=== PATIENT | male | born 1990 | race Caucasian/White ===

== ENCOUNTER → 2017-07-18 | Outpatient (REF) | payer BC | LOC: M LAB REF 12:27 | PROVIDERS: ATTEND Physician Assistant | DX: J01.90 Acute sinusitis, unspecified (principal) ==

== ENCOUNTER → 2018-10-08 | Outpatient (REF) | payer BC | LOC: M SFHCLERA 16:12 | PROVIDERS: ATTEND Nurse Practitioner Family | DX: R50.9 Fever, unspecified (principal) ==

== ENCOUNTER → 2021-06-04 | Outpatient (CLI) | payer MEDICAID ==
--- NOTE | 2021-06-04 17:05 | REP ---
INDICATION: CHRONIC OTITIS MEDIA. Repeat dictation. Preliminary report is provided at the time of the exam by arielle BURROUGHS. COMPARISON: Comparison CT study of the brain May 11, 2014. TECHNIQUE: Helical scanning is acquired and 1 mm axial images re-formatted. Bone targeted zone axial and coronal thin sections are provided through the petrous bones bilaterally. FINDINGS: There is fluid filling mastoid air cells bilaterally, right more so than left consistent with some degree of mastoiditis. In the right the middle ear cavity is partially fluid-filled as well with fluid density medial to the tympanic membrane and adjacent to the middle ear ossicles. The superior aspect of the middle ear cavity is aerated. No bony erosive changes seen. The cochlear and vestibular apparatus appear intact. The internal auditory canals are normal and symmetric. The left middle ear cavity is normally aerated. The left cochlear and vestibular apparatus is normal. In the external auditory canals are unremarkable bilaterally. IMPRESSION: Fluid density material seen within the middle ear cavity on the right. Bilateral mastoid sinus opacification consistent with mastoiditis, right greater than left. <Electronically signed by Tahir Gonzalez > 06/04/21 [id number]
== END ==
LOC: M RAD 09:17
PROVIDERS: ATTEND Physician Assistant Medical
DX: H65.21 Chronic serous otitis media, right ear (principal)

== ENCOUNTER 2021-06-20 14:20 | Day surgery (SDC) | payer MEDICAID ==
[~2021-06-20] VITALS: Ht 182.9 cm; Wt 144.7 kg
[~2021-06-20 14:20] MED LIST: CIPRODEX OTIC SUSP 7.5ML As Ordered ONE
--- OUTSIDE RECORDS SUMMARY | 2021-06-20 14:24 | CCD | Continuity of Care Document ---
Author Author Willam EDEN Organization Unknown Address [address], [address] [place] [address] Phone [phone] Care Team Providers Care Sack Lifter Name Role Phone Pamela Earl AUTM AUTM Unavailable [facility] AUTM [phone] Problems Active Problems Provider Date Essential hypertension Aaron Nicole MD Onset: 08/29/2020 Social History Type Date Description Comments Sex Unknown ETOH Use Denies alcohol use Tobacco Use Start: Unknown Non Smoker Allergies and adverse reactions Description No Known Drug Allergies Medications Active Medications SIG Qnty Indications Ordering Provide r Date Augmentin 875-125mg Tablets tab by mouth twice a day 28tabs H70.13 Aaron Nicole MD 06/13/2021 Flonase Allergy Relief 50mcg/Act Suspension 2 sprays per nostril daily 19.8ml H69.93 Neeta Haynes 11/22/2020 Lisinopril 10mg Tablets Take 1 Tablet By Mouth Once Daily Unknown Sertraline HCL 50mg Tablets Take 1 Tablet By Mouth Once Daily For 90 Days Unknown Immunizations Description No Information Available Vital Signs Date Vital Result Comment 06/13/2021 8:42am Height 72 inches 6'0" Weight 313.00 lb BMI (Body Mass Index) 42.4 kg/m2 [place] Body Weight 178 lb Weight 141.977 kg BSA (Body Surface Area) 2.58 m2 01/12/2021 9:44am Height 72 inches 6'0" Weight 315.00 lb BMI (Body Mass Index) 42.7 kg/m2 [place] Body Weight 178 lb Weight 142.884 kg BSA (Body Surface Area) 2.58 m2 Results Description No Information Available Procedures Date Code Description Status 06/13/2021 17034 Office/Outpatient Established Mo d MDM 30-39 Min Completed 01/12/2021 96164 Office/Outpatient Established Lo w MDM 20-29 Min Completed 01/12/2021 36118 Endoscopy Nasal Diagnostic Compl eted Medical Devices Description No Information Available Encounters Type Date Location Provider Dx Diagnosis Office Visit 06/13/2021 8:30a [facility] Chu Eden II, PA-C H69.93 Unspecified Eustachian tube disorder, bi lateral H65.21 Chronic serous otitis media, right ear H90.11 Condctv hear loss, uni, righ t ear, w unrestr hear cntra side H70.13 Chronic mastoiditis, bilater al Office Visit 01/12/2021 10:00a [facility] Chu Eden II, PA-C H69.93 Unspecified Eustachian tube disorder, bi lateral H65.21 Chronic serous otitis media, right ear J35.2 Hypertrophy of adenoids H90.11 Condctv hear loss, uni, righ t ear, w unrestr hear cntra side Assessments Date Code Description Provider 06/13/2021 H69.93 Unspecified Eustachian tube diso rder, bilateral Chu Eden II PA-C 06/13/2021 H65.21 Chronic serous otitis media, rig ht ear Chu Eden II PA-C 06/13/2021 H90.11 Conductive hearing l oss, unilateral, right ear, with unrestricted hearing on the contralateral side MEERA Randall IIC 06/13/2021 H70.13 [facility], [facility] 01/12/2021 H69.93 Unspecified Eustachian tube diso rder, bilateral ANA LAURA Randall II-C 01/12/2021 H65.21 Chronic serous otitis media, rig ht ear Chu Eden II PA-C 01/12/2021 J35.2 Hypertrophy of adenoids Chu shaw II PAThoC 01/12/2021 H90.11 Conductive hearing l oss, unilateral, right ear, with unrestricted hearing on the contralateral side Chu Eden II, PA-C Plan of Treatment Future Appointment(s):* 06/20/2021 11:15 am - Aaron Nicole MD at [facility] 06/13/2021 - Chu Eden II, PA-C* H69.93 Unspecified Eustachian tube disorder, bilateral * H65.21 Chronic serous otitis media, right ear * H90.11 Conductive hearing loss, unilateral, right ear, with unrestricted hearing on the contralateral side * H70.13 Chronic mastoiditis, bilateral* New Medication:* Augmentin 875-125 mg - tab by mouth twice a day * Comments:* There is effusion in the right middle ear space and CT findings consistent with bilateral mastoiditis. He has no pain, no fever, no vertigo. Start Augmentin as directed. We will have him return in the next 1 to 2 weeks for review with Dr. Nicole as surgical intervention may be considered * Follow up:* with Dr Nicole 1-2w Functional Status Description No Information Available Mental Status Description No Information Available Referrals Refer to Reason for Referral Status Appt Date Aaron Nicole MD RECHECK H.69.93 Closed 03/[address] [address] [phone]
--- OUTSIDE RECORDS SUMMARY | 2021-06-20 14:24 | CCD | Continuity of Care Document ---
Author Author Willam EDEN Organization Unknown Address [address], [address] [place] [address] Phone [phone] Care Team Providers Care Reordering Clerk Name Role Phone Pamela Earl AUTM [phone] AUTM Unavailable [facility] AUTM [phone] Problems Active Problems Provider Date Essential hypertension [...] lb BMI (Body Mass Index) 42.4 kg/m2 [place] Body Weight 178 lb Weight 141.977 kg BSA (Body Surface Area) 2.58 m2 01/12/2021 9:44am Height 72 inches 6'0" Weight 315.00 lb BMI (Body Mass Index) 42.7 kg/m2 [place] Body Weight 178 lb Weight 142.884 kg BSA (Body Surface Area) 2.58 m2 Results Description No Information Available Procedures Date Code Description Status 01/12/2021 78022 Office/Outpatient Established Lo w MDM 20-29 Min Completed 01/12/2021 55840 Endoscopy Nasal Diagnostic Compl eted Medical Devices Description No Information Available Encounters Type Date Location Provider Dx Diagnosis Office Visit 01/12/2021 10:00a [facility] Chu Eden II, PA-C H69.93 Unspecified Eustachian tube disorder, bi lateral H65.21 Chronic serous otitis media, right ear J35.2 Hypertrophy of adenoids H90.11 Condctv hear loss, uni, righ t ear, w unrestr hear cntra side Assessments Date Code Description Provider 06/13/2021 H69.93 Unspecified Eustachian tube diso rder, bilateral Chu Eden II, PA-C 06/13/2021 H65.21 Chronic serous otitis media, rig ht ear Chu Eden II, PA-C 06/13/2021 H90.11 Conductive hearing l oss, unilateral, right ear, with unrestricted hearing on the contralateral side Chu Eden II, PA-C 06/13/2021 H70.13 Chronic mastoiditis, bilateral T [facility] Karey FREEDMAN PA-C 01/12/2021 H69.93 Unspecified Eustachian tube diso rder, bilateral Chu Eden II, PA-C 01/12/2021 H65.21 Chronic serous otitis media, rig ht ear Chu Eden II, PA-C 01/12/2021 J35.2 Hypertrophy of adenoids Chu Spaulding alan FREEDMAN PA-C 01/12/2021 H90.11 Conductive hearing l oss, unilateral, right ear, with unrestricted hearing on the contralateral side Chu Eden II, PA-C Plan of Treatment Future Appointment(s):* 06/20/2021 11:15 am - Aaron Nicole MD at [facility] 06/13/2021 - Chu Eden II, PA-C* H69.93 Unspecified Eustachian tube disorder, bilateral * H65.21 Chronic serous otitis media, right ear * H90.11 Conductive hearing loss, unilateral, right ear, with unrestricted hearing on the contralateral side * H70.13 Chronic mastoiditis, bilateral* New Medication:* Augmentin 875-125 mg - tab by mouth twice a day * Follow up:* with Dr Nicole 2w Functional Status Description No Information Available Mental Status Description No Information Available Referrals Refer to Reason for Referral Status Appt Date Aaron Nicole MD RECHECK H.69.93 Closed 03/2021 [address] [place] [address] [phone]
--- OUTSIDE RECORDS SUMMARY | 2021-06-20 14:24 | CCD ---
Author Author [facility] Address Unknown Phone Unavailable Care Team Providers Care Med Aide Name Role Phone Leticia NICOLE MD Unavailable Unavailable Leticia NICOLE MD Unavailable Unavailable Leticia NICOLE MD Unavailable Unavailable Leticia NICOLE MD Unavailable Unavailable Leticia NICOLE MD Unavailable Unavailable Leticia NICOLE MD Unavailable Unavailable Leticia NICOLE MD Unavailable Unavailable Leticia NICOLE MD Unavailable Unavailable Leticia NICOLE MD Unavailable Unavailable Leticia NICOLE MD Unavailable Unavailable Leticia NICOLE MD Unavailable Unavailable Leticia NICOLE MD Unavailable Unavailable Leticia NICOLE MD Unavailable Unavailable Leticia NICOLE MD Unavailable Unavailable Leticia NICOLE MD Unavailable Unavailable Leticia NICOLE MD Unavailable Unavailable Leticia NICOLE MD Unavailable Unavailable Leticia NICOLE MD Unavailable Unavailable Leticia NICOLE MD Unavailable Unavailable Leticia NICOLE MD Unavailable Unavailable Leticia NICOLE MD Unavailable Unavailable Leticia NICOLE MD Unavailable Unavailable Leticia NICOLE MD Unavailable Unavailable Leticia NICOLE MD Unavailable Unavailable eLticia NICOLE MD Unavailable Unavailable Leticia NICOLE MD Unavailable Unavailable Leticia NICOLE MD Unavailable Unavailable LOS, Leticia SMITH MD Unavailable Unavailable LOS, Leticia SMITH MD Unavailable Unavailable LOS, Leticia SMITH MD Unavailable Unavailable LOS, Leticia SMITH MD Unavailable Unavailable LOS, Leticia SMITH MD Unavailable Unavailable LOS, Leticia SMITH MD Unavailable Unavailable LOS, Leticia SMITH MD Unavailable Unavailable Karey II, Chu PA Unavailable Unavailable Karey II, Chu PA Unavailable Unavailable Karey II, Chu PA Unavailable Unavailable Karey II, Chu PA Unavailable Unavailable Karey II, Chu PA Unavailable Unavailable Karey II, Chu PA Unavailable Unavailable Karey II, Chu PA Unavailable Unavailable Karey II, Chu PA Unavailable Unavailable Karey II, Chu PA Unavailable Unavailable Karey II, Chu PA Unavailable Unavailable Karey II, Chu PA Unavailable Unavailable Karey II, Chu PA Unavailable Unavailable Karey II, Chu PA Unavailable Unavailable Karey II, Chu PA Unavailable Unavailable Karey II, Chu PA Unavailable Unavailable Karey II, Chu PA Unavailable Unavailable Karey II, Chu PA Unavailable Unavailable Karey II, Chu PA Unavailable Unavailable Karey II, Chu PA Unavailable Unavailable Re-disclosure Warning The records that you are about to access may contain information from federally-assisted alcohol or drug abuse programs. If such information is present, then the following federally mandated warning applies: This information has been disclosed to you from records protected by federal confidentiality rules (42 CFR part 2). The federal rules prohibit you from making any further disclosure of this information unless further disclosure is expressly permitted by the written consent of the person to whom it pertains or as otherwise permitted by 42 CFR part 2. A general authorization for the release of medical or other information is NOT sufficient for this purpose. The Federal rules restrict any use of the information to criminally investigate or prosecute any alcohol or drug abuse patient.The records that you are about to access may contain highly sensitive health information, the redisclosure of which is protected by Article 27-F of the [facility] Public Health law. If you continue you may have access to information: Regarding HIV / AIDS; Provided by facilities licensed or operated by the [facility] Office of Mental Health; or Provided by the [facility] Office for People With Developmental Disabilities. If such information is present, then the following [facility] mandated warning applies: This information has been disclosed to you from confidential records which are protected by state law. State law prohibits you from making any further disclosure of this information without the specific written consent of the person to whom it pertains, or as otherwise permitted by law. Any unauthorized further disclosure in violation of state law may result in a fine or usp sentence or both. A general authorization for the release of medical or other information is NOT sufficient authorization for further disc losure. Family History Family Member Name Family Member Gender Family Member Status Date o f Status Description Data Source(s) Unknown Unknown Problem MEDENT ([facility]) Unknown Male Problem MEDENT ([facility] ) Unknown Male Problem MEDENT ([facility]) Encounters Encounter Providers Location Date Indications Data Source(s ) Outpatient Attender: Chu Nicole/Logan/Kiran/Rein dl 06/13/2021 08:30:00 AM EDT MED[facility] ([facility] [place] [address] [facility] [address] 01/29/2021 12:00:00 AM EDT eCW1 ([facility]) Outpatient Attender: Chu Rodriguez/Kiran/Rein dl 01/12/2021 10:00:00 AM EDT MEDENT ([facility]) [place] [address] [facility] [address] 01/01/2021 12:00:00 AM EDT eCW1 ([facility]) Outpatient Attender: Chu Nicole/Logan/Kiran/Rein dl 11/22/2020 03:00:00 PM EDT MEDENT ([facility]) [place] [address] [facility] [address] 10/10/2020 12:00:00 AM EST [facility] [place] [address] [facility] [address] 09/25/2020 12:00:00 AM EST [facility] Outpatient Attender: LUIS Nicole/Logan/Kiran/Silverio crockett 08/29/2020 09:15:00 AM EST MEDENT ([facility] ) [place] [address] [facility] [address] 07/18/2020 12:00:00 AM EST eCW1 ([facility]) Medications Medication Brand Name Start Date Product Form Dose Route Admi nistrative Instructions Pharmacy Instructions Status Indications Reaction Description Data Source(s) Amoxicillin 875 MG / Clavulanate 125 MG Oral Tablet [Augment in] Augmentin 06/13/2021 12:00:00 AM EDT ORAL active MEDENT ([facility], ) Flonase Allergy Relief Flonase Allergy Relief 11/22/2020 12:00:00 AM E DT active MEDENT ([facility], ) cetirizine hydrochloride 10 MG Oral Tablet Cetirizine HCl 10 MG Cetirizine HCl 10 MG 10/10/2020 12:00:00 AM EST 1.0 {tablet} activ e Cetirizine HCl 10 MG eCW1 ([facility]) Hydrocortisone 10 MG/ML / Neomycin 3.5 M G/ML / Polymyxin B 26034 UNT/ML Otic Solution Rqgjwlaq-Qwibpmuto-EB 3.5-05152-2 Wwctyget-Tpqmtyfiq-IX 3.5-14432-3 10/10/2020 12:00:00 AM EST 4.0 {drops_into_affected_ear} active Jfpshkjs-Knrlkctyv-LD 3.5-95335-5 eCW1 ([facility]) Hydrocortisone 10 MG/ML / Neomycin 3.5 M G/ML / Polymyxin B 92457 UNT/ML Otic Solution Sdszfsvz-Vbnexrvci-FY 3.5-89728-2 Gfrotzqh-Cezwmtxbj-DU 3.5-51265-9 10/10/2020 12:00:00 AM EST 4.0 {drops_into_affected_ear} active Vlekkjyx-Fshufdoog-LL 3.5-15152-6 eCW1 ([facility]) cetirizine hydrochloride 10 MG Oral Tablet Cetirizine HCl 10 MG Cetirizine HCl 10 MG 10/10/2020 12:00:00 AM EST 1.0 {tablet} activ e Cetirizine HCl 10 MG eCW1 ([facility]) Hydrocortisone 10 MG/ML / Neomycin 3.5 M G/ML / Polymyxin B 64216 UNT/ML Otic Solution Ktziyliv-Snswknkzq-FA 3.5-48777-9 Pewbwdmq-Ynpjgbsbp-MF 3.5-74032-9 10/10/2020 12:00:00 AM EST 4.0 {drops_into_affected_ear} active Afobpjas-Mizsoguhi-OX 3.5-77052-9 eCW1 ([facility]) cetirizine hydrochloride 10 MG Oral Tablet Cetirizine HCl 10 MG Cetirizine HCl 10 MG 10/10/2020 12:00:00 AM EST 1.0 {tablet} activ e Cetirizine HCl 10 MG eCW1 ([facility]) Fluticasone Propionate Fluticasone Propionate 08/29/2020 12:00:[address] completed MEDENT ([facility], ) Sodium Chloride 0.111 MEQ/ML Nasal Solution Saline Nasal Spr ay 08/29/2020 12:00:00 AM EST completed MEDENT ([facility], ) Meclizine Hydrochloride 25 MG Oral Tablet Meclizine HC l 25 MG Meclizine HCl 25 MG 07/20/2020 12:00:00 AM EST suspended Meclizine HCl 25 MG eCW1 ([facility]) Meclizine Hydrochloride 25 MG Oral Tablet Meclizine HC l 25 MG Meclizine HCl 25 MG 07/20/2020 12:00:00 AM EST active Meclizine HCl 25 MG eCW1 ([facility]) Meclizine Hydrochloride 25 MG Oral Tablet Meclizine HC l 25 MG Meclizine HCl 25 MG 07/20/2020 12:00:00 AM EST active Meclizine HCl 25 MG eCW1 ([facility]) Meclizine Hydrochloride 25 MG Oral Tablet Meclizine HC l 25 MG Meclizine HCl 25 MG 07/20/2020 12:00:00 AM EST suspended Meclizine HCl 25 MG eCW1 ([facility]) Meclizine Hydrochloride 25 MG Oral Tablet Meclizine HC l 25 MG Meclizine HCl 25 MG 07/20/2020 12:00:00 AM EST suspended Meclizine HCl 25 MG eCW1 ([facility]) Amlodipine 5 MG Oral Tablet AmLODIPine Besylate 5 MG AmLODIP ine Besylate 5 MG 07/18/2020 12:00:00 AM EST 1.0 {tablet} active AmLODIPine Besylate 5 MG eCW1 ([facility]) Amlodipine 5 MG Oral Tablet AmLODIPine Besylate 5 MG AmLODIP ine Besylate 5 MG 07/18/2020 12:00:00 AM EST 1.0 {tablet} suspende d AmLODIPine Besylate 5 MG eCW1 ([facility]) Amlodipine 5 MG Oral Tablet AmLODIPine Besylate 5 MG AmLODIP ine Besylate 5 MG 07/18/2020 12:00:00 AM EST 1.0 {tablet} active AmLODIPine Besylate 5 MG eCW1 ([facility]) Amlodipine 5 MG Oral Tablet AmLODIPine Besylate 5 MG AmLODIP ine Besylate 5 MG 07/18/2020 12:00:00 AM EST 1.0 {tablet} suspende d AmLODIPine Besylate 5 MG eCW1 ([facility]) Amlodipine 5 MG Oral Tablet AmLODIPine Besylate 5 MG AmLODIP ine Besylate 5 MG 07/18/2020 12:00:00 AM EST 1.0 {tablet} suspende d AmLODIPine Besylate 5 MG eCW1 ([facility]) Insurance Providers Payer name Policy type / Coverage type Policy ID Covered democrat ID Covered democrat's relationship to tian Policy Tian Plan Information [place] [id number] SP [id number] T BLUE CROSS BLUE SHIELD -O/P BS [id number] 18 [id number] ANSI-Commercial [id number] [place] BC-BS PPO [id number] SP [id number] [place] PPO 302/307 [id number] SP [id number] BCBS/Blue Card Commercial [id number] Self [id number] BS [place] Commercial [id number] Self [id number] Blue Cross Blue Shield CL Commercial [id number] Self XY [id number] BLUE CROSS BLUE SHIELD -O/P BS [id number] 18 [id number] BLUE CROSS BLUE SHIELD CL BS [id number] 18 [id number] O UNAVAILABLE UNAVAILA BLE BLUE CROSS BLUE SHIELD -RECURRING BS [id number] 18 [id number] SELF PAY UNAVAILABLE SP UNAVAILA BLE MEDICAID [id number] SP [id number] Self Pay P [id number] S [id number] Problems, Conditions, and Diagnoses Code Display Name Description Problem Type Effective Dates Data Source(s) Z68.41 [id number] BMI 40.0-44.9, adult Problem 10/10/2020 12:0 0:00 AM EST eCW1 ([facility]) [id number] Essential hypertension Essential hypertension Problem 08/29/2020 12:00:00 AM EST MEDENT ([facility]) Surgeries/Procedures Procedure Description Date Indications Data Source(s) OFFICE OUTPATIENT VISIT 25 MINUTES 06/13/2021 12:00:00 AM EDT MEDENT ([facility]) Endoscopy Nasal Diagnostic 01/12/2021 12:00:00 AM EDT MEDENT ([facility]) OFFICE OUTPATIENT VISIT 15 MINUTES 01/12/2021 12:00:00 AM EDT MEDENT ([facility]) Results No Information Social History Code Duration Value Status Description Data Source(s ) Smoking 10/10/2020 12:00:00 AM EST Never Smoker completed Never S moker eCW1 ([facility]) Smoking 10/10/2020 12:00:00 AM EST Never Smoker completed Never S moker eCW1 ([facility]) Smoking 10/10/2020 12:00:00 AM EST Never Smoker completed Never S moker eCW1 ([facility]) Smoking 07/18/2020 12:00:00 AM EST Never Smoker completed Never S moker eCW1 ([facility]) Smoking 07/18/2020 12:00:00 AM EST Never Smoker completed Never S moker eCW1 ([facility]) Vital Signs ID Date Data Source UNK Name Value Range Interpretation Code Description Data Source(s) Body weight 141.977 kg 141.977 kg [facility] ([facility]) Body surface area Derived from formula 2.58 m2 2.58 m2 [facility] ([facility]) Body height 72 [in_i] 72 [in_i] MEDENT ([facility]) 6'0" Body weight 313.00 [lb_av] 313.00 [lb_av] MEDEN T ([facility]) Body mass index (BMI) [Ratio] 42.4 kg/m2 42.4 k g/m2 [facility] ([facility]) [place] body weight 178 [lb_av] 178 [lb_av] MEDEN T ([facility]) Body height 72 [in_i] 72 [in_i] MEDENT ([facility]) 6'0" Body weight 315.00 [lb_av] 315.00 [lb_av] MEDEN T ([facility]) Body mass index (BMI) [Ratio] 42.7 kg/m2 42.7 k g/m2 [facility] ([facility]) [place] body weight 178 [lb_av] 178 [lb_av] MEDEN T ([facility]) Body weight 142.884 kg 142.884 kg [facility] ([facility]) Body surface area Derived from formula 2.58 m2 2.58 m2 [facility] ([facility]) Body mass index (BMI) [Ratio] 42.7 kg/m2 42.7 k g/m2 [facility] ([facility]) Body height 72 [in_i] 72 [in_i] MEDENT ([facility]) 6'0" Body weight 315.00 [lb_av] 315.00 [lb_av] MEDEN T ([facility]) [place] body weight 178 [lb_av] 178 [lb_av] MEDEN T ([facility]) Body weight 142.884 kg 142.884 kg [facility] ([facility]) Body surface area Derived from formula 2.58 m2 2.58 m2 [facility] ([facility]) Body height 72 [in_i] 72 [in_i] [facility] ([facility]) 6'0" Body weight 315.00 [lb_av] 315.00 [lb_av] MEDEN T ([facility]) Body mass index (BMI) [Ratio] 42.7 kg/m2 42.7 k g/m2 [facility] ([facility]) Body weight 142.884 kg 142.884 kg [facility] ([facility]) [place] body weight 178 [lb_av] 178 [lb_av] MEDEN T ([facility]) Body surface area Derived from formula 2.58 m2 2.58 m2 [facility] ([facility]) Systolic blood pressure 119 mm[Hg] 119 mm[Hg] e CW1 ([facility]) Diastolic blood pressure 76 mm[Hg] 76 mm[Hg] eCW1 ([facility]) Body weight 325.6 [lb_av] 325.6 [lb_av] eCW1 ([facility]) Body height 72 [in_i] 72 [in_i] eCW1 ([facility]) Body mass index (BMI) [Ratio] 44.15 kg/m2 44.15 kg/m2 eCW1 ([facility]) Heart rate 103 /min 103 /min eCW1 ([facility]) Respiratory rate 17 /min 17 /min eCW1 ([facility]) Body temperature 96.9 [degF] 96.9 [degF] eCW1 ( [facility]) Body surface area Derived from formula 2.58 m2 2.58 m2 [facility] ([facility]) Body height 72 [in_i] 72 [in_i] [facility] ([facility]) 6'0" Body weight 315.00 [lb_av] 315.00 [lb_av] MEDEN T ([facility]) Body mass index (BMI) [Ratio] 42.7 kg/m2 42.7 k g/m2 [facility] ([facility]) [place] body weight 178 [lb_av] 178 [lb_av] MEDEN T ([facility]) Body weight 142.884 kg [facility] Body weight 317 [lb_av] 317 [lb_av] eCW1 ([facility]) Body height 72 [in_i] 72 [in_i] eCW1 ([facility]) Body mass index (BMI) [Ratio] 42.99 kg/m2 42.99 kg/m2 eCW1 ([facility]) Heart rate 102 /min 102 /min eCW1 ([facility]) Respiratory rate 17 /min 17 /min eCW1 ([facility]) Body temperature 99.2 [degF] 99.2 [degF] eCW1 ( [facility]) Systolic blood pressure 156 mm[Hg] 156 mm[Hg] e CW1 ([facility]) Diastolic blood pressure 93 mm[Hg] 93 mm[Hg] eCW1 ([facility]) Patient Treatment Plan of Care Planned Activity Planned Date Details Description Data Source (s) cetirizine hydrochloride 10 MG Oral Tablet 10/10/2020 12:00:[address] eCW1 ([facility]) Hydrocortisone 10 MG/ML / Neomycin 3.5 M G/ML / Polymyxin B 14052 UNT/ML Otic Solution 10/10/2020 12:00:00 AM EST eCW1 ([facility]) cetirizine hydrochloride 10 MG Oral Tablet 10/10/2020 12:00:[address] eCW1 ([facility]) Hydrocortisone 10 MG/ML / Neomycin 3.5 M G/ML / Polymyxin B 67226 UNT/ML Otic Solution 10/10/2020 12:00:00 AM EST eCW1 ([facility]) cetirizine hydrochloride 10 MG Oral Tablet 10/10/2020 12:00:[address] eCW1 ([facility]) Hydrocortisone 10 MG/ML / Neomycin 3.5 M G/ML / Polymyxin B 41942 UNT/ML Otic Solution 10/10/2020 12:00:00 AM EST eCW1 ([facility]) Meclizine Hydrochloride 25 MG Oral Tablet 07/20/2020 12:00:00 AM ES T eCW1 ([facility]) Meclizine Hydrochloride 25 MG Oral Tablet 07/20/2020 12:00:00 AM ES T eCW1 ([facility]) Amlodipine 5 MG Oral Tablet 07/18/2020 12:00:00 AM EST eCW1 ([facility]) Amlodipine 5 MG Oral Tablet 07/18/2020 12:00:00 AM EST eCW1 ([facility])
[2021-06-20] MEDS ORDERED: LISI20TA20 PO (14:43)
[2021-06-20] MEDS ORDERED: ZOLO25TA PO (14:44)
[2021-06-20] MEDS ORDERED: AUGM875T28 PO (14:47)
[2021-06-20] MEDS ORDERED: FLON1SPR (14:47)
[2021-06-20] MEDS ORDERED: LISI10TA22 PO (14:47)
[2021-06-20] MEDS ORDERED: fentaNYL 100 MCG/2 ML INJECTION (J3010) As Ordered ONE (16:02)
[2021-06-20] MEDS ORDERED: LIDOCAINE 2% 100MG/5ML SDV (FOR ANES.) As Ordered ONE (16:03)
[2021-06-20] MEDS ORDERED: propofoL 200 MG/20 ML VIAL As Ordered ONE (16:03)
[2021-06-20] MEDS ORDERED: MIDAZOLAM INJ 2MG/2ML VIAL (J2250 PER 1MG) As Ordered ONE (16:03)
[2021-06-20] MEDS ORDERED: ONDANSETRON 4MG/2ML VIAL As Ordered ONE (16:04)
[2021-06-20] MEDS ORDERED: dexameTHASONE 4 MG/ML 1ML VIAL (J1100 PER 1MG) As Ordered ONE (16:04)
[2021-06-20] MEDS ORDERED: ACETAMINOPHEN 1000MG 100ML IV BTL (OFIRMEV) (J0131 PER 10MG) As Ordered ONE (16:53)
[2021-06-20] MEDS ORDERED: LR 1,000 ML IV SCH ×2 (17:45)
[2021-06-20 18:10] VITALS: BP 145/89
--- NOTE | 2021-06-21 11:27 | RO ---
OPERATIVE NOTE DATE OF OPERATION: 06/20/2021 PREOPERATIVE DIAGNOSIS: Bilateral eustachian tube dysfunction, bilateral otomastoiditis, and persistent effusion of the middle ears. POSTOPERATIVE DIAGNOSIS: Bilateral eustachian tube dysfunction, bilateral otomastoiditis, and persistent effusion of the middle ears. PROCEDURE PERFORMED: Bilateral tympanostomy. SURGEON: Aaron Nicole MD. FLAT FINISHER: ANESTHESIA: General. INTRAOPERATIVE FINDINGS: Effusion right middle ear. CLINICAL PREAMBLE: This 31-year-old man presented to the office with complaints of decreased hearing and fullness in the ear. Physical examination revealed retracted tympanic membranes and an effusion in the middle ears. CT of the temporal bone also confirmed presence of bilateral otomastoiditis. Patient has received medical treatment including the medical steroids and oral antibiotics without resolution of his symptoms. Management options which included bilateral tympanostomies have been discussed. The patient understood and consented for the procedure. OR NARRATION: Patent was identified in preoperative holding and brought to the operating room in stable condition. In the supine position on the operating room table, the patient received general anesthesia followed by mask ventilation. The patient's head was turned to the left side to expose the right ear. Ear speculum was inserted and cerumen was debrided. The right tympanic membrane was visualized under binocular magnification under an operating microscope and was found to be intact and mildly retracted. Myringotomy incision was made over the anterior-inferior quadrant of tympanic membrane. The right middle ear cleft was then suctioned clear. A 7 mm straight shank tympanostomy tube was inserted. Generic Ciprodex drops were instilled, and a cotton ball was used to occlude the ear canal. The same procedure was carried out to place the same type of tympanostomy tube to the left ear as well. At the end of the end of the procedure, sponge and needle counts were correct. No complications were encountered. Estimated blood loss was nil. General anesthesia was reversed, and patient was awakened and taken to recovery room in stable condition.
== END 2021-06-20 18:45 | disposition home or self-care (01) ==
LOC: M SDC 14:20
PROVIDERS: ATTEND Otolaryngology
DX: H65.23 Chronic serous otitis media, bilateral (principal); H69.93 Unspecified Eustachian tube disorder, bilateral; H70.93 Unspecified mastoiditis, bilateral; I10 Essential (primary) hypertension; Z79.899 Other long term (current) drug therapy
CPT/HCPCS: 69436; J0131; J1100; J2250; J2405; J3010; U0002

== ENCOUNTER → 2021-11-14 | Outpatient (CLI) | payer OTHER ==
[~2021-11-14] MED LIST changes: +AUGM875T28 PO; -CIPRODEX OTIC SUSP 7.5ML As Ordered ONE; +FLON1SPR; +LISI10TA22 PO; +LISI20TA37 PO; +ZOLO25TA PO
[2021-11-14 16:17] LABS: BASO # 0.1 10^3/uL (0.0-0.2); BASO % 0.7 % (0.0-1.0); EOS # 0.2 10^3/uL (0.0-0.5); EOS % 1.4 % (0.0-3.0); HEMATOCRIT 43.9 % (42.0-52.0); LYMPH # 2.3 10^3/uL (1.5-5.0); LYMPH % 20.2 % (24.0-44.0); MEAN CORPUSCULAR HEMOGLOBIN 29.5 pg (27.0-33.0); MEAN CORPUSCULAR HGB CONC 34.2 g/dl (32.0-36.5); MEAN CORPUSCULAR VOLUME 86.4 fl (80.0-96.0); MONO # 0.8 10^3/uL (0.0-0.8); MONO % 7.4 % (2.0-8.0); NEUTROPHILS # 7.9 10^3/uL (1.5-8.5); NEUTROPHILS % 69.6 % (36.0-66.0); PLATELET COUNT, AUTOMATED 296 10^3/uL (150-450); RED BLOOD COUNT 5.08 10^6/uL (4.30-6.10); WHITE BLOOD COUNT 11.3 10^3/uL (4.0-10.0)
[2021-11-14 17:02] LABS: BLOOD UREA NITROGEN 14 MG/DL (7-18); CALCIUM LEVEL 9.6 MG/DL (8.5-10.1); CARBON DIOXIDE LEVEL 29 MEQ/L (21-32); CHLORIDE LEVEL 107 MEQ/L (98-107); CREATININE FOR GFR 1.25 MG/DL (0.70-1.30); GLOMERULAR FILTRATION RATE > 60.0 (>60); GLUCOSE, FASTING 92 MG/DL (70-100); POTASSIUM SERUM 4.2 MEQ/L (3.5-5.1); SODIUM LEVEL 140 MEQ/L (136-145); URIC ACID 10.5 MG/DL (3.5-7.2)
[2021-11-14 17:13] LABS: ERYTHROCYTE SEDIMENTATION RATE 6 mm/hr (0-15)
== END ==
LOC: M WUC 11:01
PROVIDERS: ATTEND Family Medicine
DX: M10.9 Gout, unspecified (principal)

== ENCOUNTER → 2021-11-15 | Outpatient (CLI) | payer OTHER | LOC: M SOG 08:45 | PROVIDERS: ATTEND Orthopaedic Surgery | DX: M25.571 Pain in right ankle and joints of right foot (principal); M79.671 Pain in right foot ==

== ENCOUNTER → 2022-02-04 | Outpatient (CLI) | payer OTHER | LOC: M SLEEP HO 13:39 | PROVIDERS: ATTEND Physician Assistant | DX: G47.33 Obstructive sleep apnea (adult) (pediatric) (principal); R40.0 Somnolence; R06.83 Snoring ==

== ENCOUNTER → 2022-04-04 | Outpatient (CLI) | payer OTHER | LOC: M SLEEP 20:00 | PROVIDERS: ATTEND Physician Assistant | DX: G47.33 Obstructive sleep apnea (adult) (pediatric) (principal) ==

== ENCOUNTER → 2022-04-20 | Outpatient (REF) | payer OTHER | LOC: M WUC 18:52 | PROVIDERS: ATTEND Physician Assistant | DX: J06.9 Acute upper respiratory infection, unspecified (principal); Z20.828 Contact with and (suspected) exposure to other viral communicable diseases ==

== ENCOUNTER → 2022-12-11 | Outpatient (CLI) | payer OTHER, MEDICAID ==
[2022-12-11 15:06] LABS: BASO # 0.1 10^3/uL (0.0-0.2); BASO % 0.9 % (0.0-1.0); EOS # 0.2 10^3/uL (0.0-0.5); EOS % 1.7 % (0.0-3.0); HEMATOCRIT 44.4 % (42.0-52.0); HEMOGLOBIN 14.9 g/dl (13.5-17.5); LYMPH # 2.7 10^3/uL (1.5-5.0); LYMPH % 23.9 % (24.0-44.0); MEAN CORPUSCULAR HEMOGLOBIN 29.7 pg (27.0-33.0); MEAN CORPUSCULAR HGB CONC 33.6 g/dl (32.0-36.5); MEAN CORPUSCULAR VOLUME 88.6 fl (80.0-96.0); MONO # 0.8 10^3/uL (0.0-0.8); MONO % 7.1 % (2.0-8.0); NEUTROPHILS # 7.5 10^3/uL (1.5-8.5); NEUTROPHILS % 65.7 % (36.0-66.0); PLATELET COUNT, AUTOMATED 234 10^3/uL (150-450); RED BLOOD COUNT 5.01 10^6/uL (4.30-6.10); WHITE BLOOD COUNT 11.4 10^3/uL (4.0-10.0)
[2022-12-11 15:15] LABS: ALBUMIN 3.9 G/DL (3.2-5.2); ALKALINE PHOSPHATASE 71 U/L (46-116); ALT/SGPT 48 U/L (7.0-40); AST/SGOT 21 U/L (<34); BILIRUBIN,TOTAL 0.9 MG/DL (0.3-1.2); BLOOD UREA NITROGEN 16 MG/DL (9-23); CALCIUM LEVEL 8.6 MG/DL (8.5-10.1); CARBON DIOXIDE LEVEL 30 MMOL/L (20-31); CHLORIDE LEVEL 106 MMOL/L (98-107); CHOLESTEROL LEVEL 140 MG/DL (<200); CHOLESTEROL RISK RATIO 4.91 (<5); CREATININE FOR GFR 1.21 MG/DL (0.70-1.30); GLOMERULAR FILTRATION RATE > 60.0 (>60); GLUCOSE, FASTING 100 MG/DL (60-100); HDL CHOLESTEROL 28.5 MG/DL (>40); LDL CHOLESTEROL 75.5 MG/DL (<100); NON-HDL-C 111.5 MG/DL; POTASSIUM SERUM 4.2 MMOL/L (3.5-5.1); SODIUM LEVEL 141 MMOL/L (136-145); TOTAL PROTEIN 6.8 G/DL (5.7-8.2); TRIGLYCERIDES LEVEL 180 MG/DL (<150)
[2022-12-11 15:16] LABS: FREE T4 0.83 NG/DL (0.89-1.76); THYROID STIMULATING HORMONE 2.139 uIU/ML (0.55-4.78)
[2022-12-11 15:17] LABS: TOTAL 25(OH) VITAMIN D 9.4 NG/ML (20.0-100.0)
[2022-12-11 18:45] LABS: HEMOGLOBIN A1c 4.5 % (4.0-6.0)
== END ==
LOC: M WUC 09:09
PROVIDERS: ATTEND Physician Assistant
DX: Z00.00 Encounter for general adult medical examination without abnormal findings (principal); I10 Essential (primary) hypertension; F41.9 Anxiety disorder, unspecified; M10.9 Gout, unspecified; E66.01 Morbid (severe) obesity due to excess calories

== ENCOUNTER → 2023-05-08 | Outpatient (CLI) | payer OTHER, MEDICAID ==
[2023-05-08 17:56] LABS: BASO # 0.1 10^3/uL (0.0-0.2); BASO % 0.7 % (0.0-1.0); EOS # 0.2 10^3/uL (0.0-0.5); EOS % 2.3 % (0.0-3.0); HEMATOCRIT 41.1 % (42.0-52.0); HEMOGLOBIN 13.8 g/dl (13.5-17.5); LYMPH # 2.6 10^3/uL (1.5-5.0); LYMPH % 27.2 % (24.0-44.0); MEAN CORPUSCULAR HEMOGLOBIN 28.6 pg (27.0-33.0); MEAN CORPUSCULAR HGB CONC 33.6 g/dl (32.0-36.5); MEAN CORPUSCULAR VOLUME 85.3 fl (80.0-96.0); MONO # 0.7 10^3/uL (0.0-0.8); MONO % 6.7 % (2.0-8.0); NEUTROPHILS % 62.4 % (36.0-66.0); PLATELET COUNT, AUTOMATED 277 10^3/uL (150-450); RED BLOOD COUNT 4.82 10^6/uL (4.30-6.10); WHITE BLOOD COUNT 9.7 10^3/uL (4.0-10.0)
[2023-05-08 18:15] LABS: ALBUMIN 3.8 G/DL (3.2-5.2); ALKALINE PHOSPHATASE 80 U/L (46-116); ALT/SGPT 30 U/L (7.0-40); AST/SGOT 12 U/L (<34); BILIRUBIN,TOTAL 0.6 MG/DL (0.3-1.2); BLOOD UREA NITROGEN 19 MG/DL (9-23); CALCIUM LEVEL 9.2 MG/DL (8.5-10.1); CARBON DIOXIDE LEVEL 25 MMOL/L (20-31); CHLORIDE LEVEL 106 MMOL/L (98-107); CREATININE FOR GFR 1.12 MG/DL (0.70-1.30); GLOMERULAR FILTRATION RATE > 60.0 (>60); GLUCOSE, FASTING 77 MG/DL (60-100); POTASSIUM SERUM 4.4 MMOL/L (3.5-5.1); SODIUM LEVEL 141 MMOL/L (136-145); TOTAL PROTEIN 6.7 G/DL (5.7-8.2); URIC ACID 7.6 MG/DL (3.7-9.2)
[2023-05-08 18:16] LABS: FREE T4 1.01 NG/DL (0.89-1.76)
[2023-05-08 18:17] LABS: THYROID STIMULATING HORMONE 1.042 uIU/ML (0.55-4.78)
== END ==
LOC: M WUC 13:57
PROVIDERS: ATTEND Physician Assistant
DX: R94.6 Abnormal results of thyroid function studies (principal)

== ENCOUNTER → 2023-07-08 | Outpatient (CLI) | payer OTHER, MEDICAID ==
[2023-07-08 18:31] LABS: BASO # 0.1 10^3/uL (0.0-0.2); BASO % 0.8 % (0.0-1.0); EOS # 0.2 10^3/uL (0.0-0.5); EOS % 1.6 % (0.0-3.0); HEMATOCRIT 44.3 % (42.0-52.0); HEMOGLOBIN 14.9 g/dl (13.5-17.5); LYMPH # 2.7 10^3/uL (1.5-5.0); LYMPH % 23.2 % (24.0-44.0); MEAN CORPUSCULAR HEMOGLOBIN 28.7 pg (27.0-33.0); MEAN CORPUSCULAR HGB CONC 33.6 g/dl (32.0-36.5); MEAN CORPUSCULAR VOLUME 85.4 fl (80.0-96.0); MONO # 0.7 10^3/uL (0.0-0.8); NEUTROPHILS # 7.8 10^3/uL (1.5-8.5); NEUTROPHILS % 67.5 % (36.0-66.0); PLATELET COUNT, AUTOMATED 261 10^3/uL (150-450); RED BLOOD COUNT 5.19 10^6/uL (4.30-6.10); WHITE BLOOD COUNT 11.5 10^3/uL (4.0-10.0)
[2023-07-08 18:38] LABS: ERYTHROCYTE SEDIMENTATION RATE 6 mm/hr (0-15)
[2023-07-08 19:12] LABS: URIC ACID 7.3 MG/DL (3.7-9.2)
[2023-07-08 19:16] LABS: ALKALINE PHOSPHATASE 72 U/L (46-116); ALT/SGPT 55 U/L (7.0-40); AST/SGOT 31 U/L (<34); BILIRUBIN,TOTAL 0.9 MG/DL (0.3-1.2); BLOOD UREA NITROGEN 13 MG/DL (9-23); C REACTIVE PROTEIN QUANTITATIV < 0.40 MG/DL (<1.0); CALCIUM LEVEL 8.8 MG/DL (8.5-10.1); CARBON DIOXIDE LEVEL 27 MMOL/L (20-31); CHLORIDE LEVEL 108 MMOL/L (98-107); GLOMERULAR FILTRATION RATE > 60.0 (>60); GLUCOSE, FASTING 87 MG/DL (60-100); POTASSIUM SERUM 3.9 MMOL/L (3.5-5.1); SODIUM LEVEL 144 MMOL/L (136-145); TOTAL PROTEIN 7.1 G/DL (5.7-8.2)
== END ==
LOC: M WUC 12:57
PROVIDERS: ATTEND Physician Assistant
DX: M10.9 Gout, unspecified (principal); M77.31 Calcaneal spur, right foot; M77.32 Calcaneal spur, left foot

== ENCOUNTER → 2023-07-08 | Outpatient (CLI) | payer OTHER, MEDICAID ==
[2023-07-08 18:38] LABS: BASO # 0.1 10^3/uL (0.0-0.2); BASO % 0.8 % (0.0-1.0); EOS # 0.2 10^3/uL (0.0-0.5); EOS % 1.8 % (0.0-3.0); HEMATOCRIT 44.2 % (42.0-52.0); LYMPH # 2.6 10^3/uL (1.5-5.0); LYMPH % 22.9 % (24.0-44.0); MEAN CORPUSCULAR HEMOGLOBIN 28.8 pg (27.0-33.0); MEAN CORPUSCULAR HGB CONC 33.9 g/dl (32.0-36.5); MONO # 0.7 10^3/uL (0.0-0.8); MONO % 6.4 % (2.0-8.0); NEUTROPHILS # 7.7 10^3/uL (1.5-8.5); NEUTROPHILS % 67.1 % (36.0-66.0); PLATELET COUNT, AUTOMATED 262 10^3/uL (150-450); WHITE BLOOD COUNT 11.4 10^3/uL (4.0-10.0)
[2023-07-08 19:17] LABS: ALKALINE PHOSPHATASE 72 U/L (46-116); ALT/SGPT 56 U/L (7.0-40); AST/SGOT 31 U/L (<34); BILIRUBIN,TOTAL 0.9 MG/DL (0.3-1.2); BLOOD UREA NITROGEN 12 MG/DL (9-23); CARBON DIOXIDE LEVEL 27 MMOL/L (20-31); CHLORIDE LEVEL 108 MMOL/L (98-107); CHOLESTEROL LEVEL 165 MG/DL (<200); CHOLESTEROL RISK RATIO 5.23 (<5); GLOMERULAR FILTRATION RATE > 60.0 (>60); GLUCOSE, FASTING 85 MG/DL (60-100); HDL CHOLESTEROL 31.5 MG/DL (>40); IRON (FE) 98 UG/DL (65-175); LDL CHOLESTEROL 81.9 MG/DL (<100); NON-HDL-C 133.5 MG/DL; PERCENT SATURATION 27.5 % (19.7-50.0); POTASSIUM SERUM 4.1 MMOL/L (3.5-5.1); SODIUM LEVEL 143 MMOL/L (136-145); TOTAL IRON BINDING CAPACITY 357 UG/DL (250-425); TOTAL PROTEIN 7.2 G/DL (5.7-8.2); TRIGLYCERIDES LEVEL 258 MG/DL (<150)
[2023-07-08 19:19] LABS: FERRITIN 52.1 NG/ML (10.5-307.3); FREE T4 0.83 NG/DL (0.89-1.76); THYROID STIMULATING HORMONE 1.714 uIU/ML (0.55-4.78)
[2023-07-08 19:20] LABS: TOTAL 25(OH) VITAMIN D 41.1 NG/ML (20.0-100.0); VITAMIN B12 LEVEL 380 PG/ML (211-911)
[2023-07-08 19:22] LABS: FOLATE 14.83 NG/ML (>5.4)
== END ==
LOC: M WUC 12:54
PROVIDERS: ATTEND Registered Nurse
DX: Z01.812 Encounter for preprocedural laboratory examination (principal); Z13.220 Encounter for screening for lipoid disorders; D51.9 Vitamin B12 deficiency anemia, unspecified; E51.9 Thiamine deficiency, unspecified; E55.9 Vitamin D deficiency, unspecified; E66.01 Morbid (severe) obesity due to excess calories

== ENCOUNTER → 2023-09-30 | Outpatient (CLI) | payer OTHER ==
[~2023-09-30] MED LIST changes: +ALLO100T PO; +AMLO1TAB24 PO; +SERT50TA29 PO
== END ==
LOC: M EKG 08:21
PROVIDERS: ATTEND Anesthesiology
DX: Z01.818 Encounter for other preprocedural examination (principal); R94.31 Abnormal electrocardiogram [ECG] [EKG]

== ENCOUNTER 2023-10-03 07:29 | Day surgery (SDC) | payer OTHER ==
[~2023-10-03] VITALS: Ht 180.3 cm; Wt 162.7 kg
[2023-10-03] MEDS ORDERED: LR 1,000 ML IV SCH ×2 (07:55→10:05)
[2023-10-03] MEDS ORDERED: CIPRODEX OTIC SUSP 7.5ML As Ordered ONE (08:43)
[2023-10-03] MEDS ORDERED: OXYMETAZOLINE 0.05% NASAL SPRAY (AFRIN) As Ordered ONE (08:43)
[2023-10-03] MEDS ORDERED: fentaNYL 100 MCG/2 ML INJECTION As Ordered ONE (08:51)
[2023-10-03] MEDS ORDERED: MIDAZOLAM INJ 2MG/2ML VIAL As Ordered ONE (08:52)
[2023-10-03] MEDS ORDERED: propofoL 200 MG/20 ML VIAL As Ordered ONE (08:52)
[2023-10-03] MEDS ORDERED: ONDANSETRON 4MG 2ML VIAL As Ordered ONE (08:53)
[2023-10-03] MEDS ORDERED: LIDOCAINE 2% 100MG/5ML SDV (FOR ANES.) As Ordered ONE (08:53)
[2023-10-03] MEDS ORDERED: ROCURONIUM BROMIDE 50MG/5ML VIAL As Ordered ONE (09:02)
[2023-10-03] MEDS ORDERED: SUGAMMADEX SODIUM 500 MG/5 ML VIAL (BRIDION) As Ordered ONE (09:02)
[2023-10-03] MEDS ORDERED: EPINEPHrine 1MG/ML INJ 30ML MD-VIAL As Ordered ONE (09:25)
[2023-10-03] MEDS ORDERED: LABETALOL 100MG/20ML VIAL As Ordered ONE (09:29)
[2023-10-03] MEDS ORDERED: fentaNYL 100 MCG/2 ML INJECTION IV PRN (10:05)
[2023-10-03] MEDS ORDERED: ONDANSETRON 4MG 2ML VIAL IV PRN (10:05)
[2023-10-03] MEDS ORDERED: oxyCODONE 5MG TAB PO PRN (10:25)
[2023-10-03 11:25] VITALS: BP 141/96; TEMP 98.3; O2SAT 99
== END 2023-10-03 11:25 | disposition home or self-care (01) ==
LOC: M SDC 07:29
PROVIDERS: ATTEND Otolaryngology
DX: H65.21 Chronic serous otitis media, right ear (principal); J34.3 Hypertrophy of nasal turbinates; I10 Essential (primary) hypertension; J35.2 Hypertrophy of adenoids; M10.9 Gout, unspecified; K21.9 Gastro-esophageal reflux disease without esophagitis; F41.9 Anxiety disorder, unspecified; G47.33 Obstructive sleep apnea (adult) (pediatric); Z79.899 Other long term (current) drug therapy
CPT/HCPCS: 69436; 69706; J0171; J1100; J1920; J2250; J2405; J3010

== ENCOUNTER → 2023-10-09 | Outpatient (CLI) | payer OTHER ==
[~2023-10-09] MED LIST changes: +ISOVUE-370 76% 100ML VIAL As Ordered ONE
== END ==
LOC: M RAD 17:25
PROVIDERS: ATTEND Physician Assistant
DX: N28.89 Other specified disorders of kidney and ureter (principal); K42.9 Umbilical hernia without obstruction or gangrene; K76.0 Fatty (change of) liver, not elsewhere classified; R16.0 Hepatomegaly, not elsewhere classified; K57.90 Diverticulosis of intestine, part unspecified, without perforation or abscess without bleeding; K40.90 Unilateral inguinal hernia, without obstruction or gangrene, not specified as recurrent
CPT/HCPCS: 74178; Q9967

== ENCOUNTER → 2024-05-17 | Outpatient (CLI) | payer OTHER, MEDICAID ==
[~2024-05-17] MED LIST changes: -ISOVUE-370 76% 100ML VIAL As Ordered ONE
[2024-05-17 10:58] LABS: BASO # 0.1 10^3/uL (0.0-0.2); BASO % 0.5 % (0.0-1.0); EOS # 0.1 10^3/uL (0.0-0.5); EOS % 1.2 % (0.0-3.0); HEMATOCRIT 47.3 % (42.0-52.0); HEMOGLOBIN 16.3 g/dl (13.5-17.5); LYMPH # 2.3 10^3/uL (1.5-5.0); LYMPH % 21.1 % (24.0-44.0); MEAN CORPUSCULAR HGB CONC 34.5 g/dl (32.0-36.5); MONO # 0.5 10^3/uL (0.0-0.8); MONO % 4.5 % (2.0-8.0); NEUTROPHILS # 7.9 10^3/uL (1.5-8.5); NEUTROPHILS % 72.5 % (36.0-66.0); PLATELET COUNT, AUTOMATED 253 10^3/uL (150-450); RED BLOOD COUNT 5.63 10^6/uL (4.30-6.10)
[2024-05-17 11:22] LABS: ALBUMIN 4.3 G/DL (3.2-5.2); ALKALINE PHOSPHATASE 104 U/L (46-116); ALT/SGPT 33 U/L (7.0-40); AST/SGOT 17 U/L (<34); BILIRUBIN,TOTAL 0.9 MG/DL (0.3-1.2); BLOOD UREA NITROGEN 13 MG/DL (9-23); CALCIUM LEVEL 9.5 MG/DL (8.5-10.1); CARBON DIOXIDE LEVEL 29 MMOL/L (20-31); CHLORIDE LEVEL 108 MMOL/L (98-107); CREATININE FOR GFR 1.18 MG/DL (0.70-1.30); GLOMERULAR FILTRATION RATE > 60.0 (>60); GLUCOSE, FASTING 90 MG/DL (60-100); IRON (FE) 95 UG/DL (65-175); PERCENT SATURATION 27.1 % (19.7-50.0); POTASSIUM SERUM 3.5 MMOL/L (3.5-5.1); SODIUM LEVEL 143 MMOL/L (136-145); TOTAL IRON BINDING CAPACITY 351 UG/DL (250-425); TOTAL PROTEIN 7.3 G/DL (5.7-8.2)
[2024-05-17 11:24] LABS: FERRITIN 72.7 NG/ML (10.5-307.3); VITAMIN B12 LEVEL 611 PG/ML (211-911)
[2024-05-18 16:10] LABS: TRANSFERRIN 286 mg/dL (188-341)
== END ==
LOC: M WUC 08:52
PROVIDERS: ATTEND Registered Nurse
DX: E66.01 Morbid (severe) obesity due to excess calories (principal)

== ENCOUNTER → 2024-11-29 | Outpatient (CLI) | payer OTHER, MEDICAID ==
[2024-11-30 15:43] LABS: BASO # 0.1 10^3/uL (0.0-0.2); BASO % 0.6 % (0.0-1.0); EOS # 0.2 10^3/uL (0.0-0.5); EOS % 1.5 % (0.0-3.0); LYMPH # 2.7 10^3/uL (1.5-5.0); LYMPH % 24.5 % (24.0-44.0); MEAN CORPUSCULAR HEMOGLOBIN 28.7 pg (27.0-33.0); MEAN CORPUSCULAR HGB CONC 31.9 g/dl (32.0-36.5); MEAN CORPUSCULAR VOLUME 89.9 fl (80.0-96.0); MONO # 0.6 10^3/uL (0.0-0.8); MONO % 5.8 % (2.0-8.0); NEUTROPHILS # 7.5 10^3/uL (1.5-8.5); NEUTROPHILS % 67.2 % (36.0-66.0); PLATELET COUNT, AUTOMATED 251 10^3/uL (150-450); RED BLOOD COUNT 5.23 10^6/uL (4.30-6.10); WHITE BLOOD COUNT 11.1 10^3/uL (4.0-10.0)
[2024-11-30 15:55] LABS: HEMOGLOBIN A1c 4.4 % (4.0-6.0)
[2024-11-30 16:08] LABS: ALBUMIN 4.6 G/DL (3.2-5.2); ALKALINE PHOSPHATASE 79 U/L (40-129); ALT/SGPT 21 U/L (7.0-40); AST/SGOT 16 U/L (<34); BILIRUBIN,TOTAL 0.8 MG/DL (0.3-1.2); BLOOD UREA NITROGEN 16 MG/DL (9-23); CALCIUM LEVEL 9.4 MG/DL (8.5-10.1); CARBON DIOXIDE LEVEL 30 MMOL/L (20-31); CHLORIDE LEVEL 103 MMOL/L (98-107); CHOLESTEROL LEVEL 157 MG/DL (<200); CHOLESTEROL RISK RATIO 4.17 (<5); CREATININE FOR GFR 1.03 MG/DL (0.70-1.30); GLOMERULAR FILTRATION RATE > 60.0 (>60); GLUCOSE, FASTING 71 MG/DL (60-100); HDL CHOLESTEROL 37.6 MG/DL (>40); LDL CHOLESTEROL 72.8 MG/DL (<100); NON-HDL-C 119.4 MG/DL; SODIUM LEVEL 144 MMOL/L (136-145); THYROID STIMULATING HORMONE 1.917 uIU/ML (0.55-4.78); TOTAL PROTEIN 7.3 G/DL (5.7-8.2); TRIGLYCERIDES LEVEL 233 MG/DL (<150)
[2024-11-30 16:09] LABS: TOTAL 25(OH) VITAMIN D 20.6 NG/ML (20.0-100.0)
[2024-11-30 16:32] LABS: VITAMIN B12 LEVEL 522 PG/ML (211-911)
== END ==
LOC: M WUC 13:48
DX: F41.9 Anxiety disorder, unspecified (principal); I10 Essential (primary) hypertension; M10.9 Gout, unspecified; G47.33 Obstructive sleep apnea (adult) (pediatric)

== ENCOUNTER → 2024-11-29 | Outpatient (CLI) | payer OTHER, MEDICAID ==
[2024-11-30 15:41] LABS: HEMATOCRIT 47.2 % (42.0-52.0); HEMOGLOBIN 15.3 g/dl (13.5-17.5); MEAN CORPUSCULAR HGB CONC 32.4 g/dl (32.0-36.5); MEAN CORPUSCULAR VOLUME 89.6 fl (80.0-96.0); PLATELET COUNT, AUTOMATED 247 10^3/uL (150-450); RED BLOOD COUNT 5.27 10^6/uL (4.30-6.10); WHITE BLOOD COUNT 10.9 10^3/uL (4.0-10.0)
[2024-11-30 15:55] LABS: HEMOGLOBIN A1c 4.4 % (4.0-6.0)
[2024-11-30 16:08] LABS: ALBUMIN 4.5 G/DL (3.2-5.2); ALKALINE PHOSPHATASE 79 U/L (40-129); ALT/SGPT 19 U/L (7.0-40); AST/SGOT 16 U/L (<34); BILIRUBIN,TOTAL 0.7 MG/DL (0.3-1.2); BLOOD UREA NITROGEN 15 MG/DL (9-23); CALCIUM LEVEL 9.1 MG/DL (8.5-10.1); CARBON DIOXIDE LEVEL 30 MMOL/L (20-31); CHLORIDE LEVEL 106 MMOL/L (98-107); CREATININE FOR GFR 1.05 MG/DL (0.70-1.30); GLOMERULAR FILTRATION RATE > 60.0 (>60); GLUCOSE, FASTING 68 MG/DL (60-100); IRON (FE) 78 UG/DL (65-175); PERCENT SATURATION 22.4 % (19.7-50.0); SODIUM LEVEL 144 MMOL/L (136-145); TOTAL 25(OH) VITAMIN D 22.4 NG/ML (20.0-100.0); TOTAL IRON BINDING CAPACITY 348 UG/DL (250-425); TOTAL PROTEIN 7.3 G/DL (5.7-8.2)
[2024-11-30 16:09] LABS: FERRITIN 75.5 NG/ML (10.5-307.3); VITAMIN B12 LEVEL 532 PG/ML (211-911)
== END ==
LOC: M WUC 13:44
PROVIDERS: ATTEND Surgery
DX: K91.2 Postsurgical malabsorption, not elsewhere classified (principal)